=== PATIENT | female | born 1970 ===

== ENCOUNTER 2020-02-13 07:16 | Outpatient (NON) | payer OTHER, SELFPAY ==
[2020-02-13 23:05] LABS: SARS-CoV-2 RNA PCR Negative
== END 2020-02-13 07:17 ==
PROVIDERS: Physician Assistant; PCP Family Medicine; Visit Provider Family Medicine
DX: Z20.828 Contact with and (suspected) exposure to other viral communicable diseases (principal); J02.9 Acute pharyngitis, unspecified
CPT/HCPCS: 87635; C9803; U0003